=== PATIENT | female | born 1945 | race Caucasian/White ===

== ENCOUNTER 2021-06-17 06:53 | Observation (INO) ==
[2021-06-17] MEDS ORDERED: Naloxone 0.4 MG/ML INJ IVP PRN (11:24)
[2021-06-17] MEDS ORDERED: Ondansetron 4 MG/2 ML VIAL IVP PRN (11:24)
[2021-06-17] MEDS ORDERED: Acetaminophen 325 MG TABLET PO PRN (11:24)
[2021-06-17] MEDS ORDERED: D5% in Water 1,000 ML IVC PRN (12:36)
[2021-06-17] MEDS ORDERED: Dextrose Gel 15 GM/37.5 ML TUBE PO PRN ×2 (12:36)
[2021-06-17] MEDS ORDERED: *HR* Dextrose 50 % in Water (Syg) 50 ML SYRINGE IVP PRN (12:36)
[2021-06-17] MEDS: Insulin LISPRO 300 UNITS/3 ML VIAL SUBQ SCH ×3 (13:13→20:24)
[2021-06-17 13:31] LABS: Basophils % 0.1 %; Eosinophils % 0.3 %; Hematocrit 30.2 % (35.3-44.9); Hemoglobin 9.5 g/dL (11.5-15.4); Immature Granulocytes % 1.2 % (0-4); Lymphocytes # 1.1 K/mcL (0.6-4.6); Lymphocytes % 13.8 %; Mean Corpuscular HGB Conc 31.5 g/dL (31.6-35.5); Mean Corpuscular Hemoglobin 28.9 pg (28.0-33.3); Mean Corpuscular Volume 91.8 fL (83.0-100.0); Mean Platelet Volume 9.8 fL (9.4-12.4); Monocytes # 0.5 K/mcL (0.0-1.3); Monocytes % 6.4 %; Nucleated Red Blood Cells 0.4 /100 WBC (0); Platelet Count 134 K/mcL (140-400); Red Blood Count 3.29 M/mcL (3.82-4.97); Red Cell Distribution Width 15.7 % (11.5-14.5); Segmented Neutrophils % 78.2 %; White Blood Count 7.6 K/mcL (4.3-11.1)
[2021-06-17 13:43] LABS: INR 1.2
[2021-06-17 13:50] LABS: Calcium 8.1 mg/dL (8.6-10.3); Magnesium 1.7 mg/dL (1.6-2.6); Potassium 4.5 mEq/L (3.5-5.1)
[2021-06-17] MEDS ORDERED: SODIUM CHLORIDE/NAHCO3/KCL/PEG 4,000 ML SOLN.RECON PO ONE (17:00)
[2021-06-17] MEDS: 0.9 % Sodium Chloride 1,000 ML IVC SCH (17:01)
[2021-06-18 02:36] LABS: Basophils % 0.2 %; Eosinophils % 0.7 %; Hematocrit 26.9 % (35.3-44.9); Hemoglobin 8.5 g/dL (11.5-15.4); Immature Granulocytes % 0.8 % (0-4); Lymphocytes # 0.6 K/mcL (0.6-4.6); Lymphocytes % 9.7 %; Mean Corpuscular HGB Conc 31.6 g/dL (31.6-35.5); Mean Corpuscular Hemoglobin 28.7 pg (28.0-33.3); Mean Corpuscular Volume 90.9 fL (83.0-100.0); Mean Platelet Volume 10.3 fL (9.4-12.4); Monocytes # 0.5 K/mcL (0.0-1.3); Monocytes % 7.4 %; Nucleated Red Blood Cells 0.3 /100 WBC (0); Platelet Count 105 K/mcL (140-400); Red Blood Count 2.96 M/mcL (3.82-4.97); Segmented Neutrophils % 81.2 %; White Blood Count 6.1 K/mcL (4.3-11.1)
[2021-06-18 02:43] LABS: Calcium 7.8 mg/dL (8.6-10.3); Magnesium 1.6 mg/dL (1.6-2.6); Potassium 3.9 mEq/L (3.5-5.1)
[2021-06-18 02:45] LABS: Albumin 3.1 g/dL (3.5-5.7); Albumin/Globulin Ratio 1.2 (1.1-2.2); Bilirubin,Direct 0.1 mg/dL (0.0-0.2); Bilirubin,Indirect 0.5 mg/dL (0.0-1.0); Bilirubin,Total 0.6 mg/dL (0.3-1.0); Globulin 2.6 g/dL (2.4-3.5); Total Protein 5.7 g/dL (6.4-8.9)
[2021-06-18 02:48] LABS: INR 1.2; Prothrombin Time 12.9 Seconds (9.4-12.1)
[2021-06-18] MEDS: 0.9 % Sodium Chloride 1,000 ML IVC SCH ×2 (02:49→11:56)
[2021-06-18 03:10] LABS: Folate 7.7 ng/mL (3.0-16.0)
[2021-06-18] MEDS: Insulin LISPRO 300 UNITS/3 ML VIAL SUBQ SCH ×4 (07:24→21:01)
[2021-06-18] MEDS: carvediloL 6.25 MG TABLET PO SCH ×2 (11:55→21:01)
[2021-06-18] MEDS: Magnesium Oxide 400 MG TABLET PO SCH (11:56)
[2021-06-18] MEDS: Budesonide/Formoterol 160/4.5 1 PUFF INH IH SCH ×2 (15:25→20:30)
[2021-06-18 18:41] LABS: Hematocrit 27.7 % (35.3-44.9); Hemoglobin 8.8 g/dL (11.5-15.4)
[2021-06-18] MEDS ORDERED: Isovue-370 500 ML BOTTLE IVP ONE (18:45)
[2021-06-19 01:32] LABS: Basophils % 0.2 %; Eosinophils % 0.8 %; Hematocrit 25.3 % (35.3-44.9); Hemoglobin 8.2 g/dL (11.5-15.4); Immature Granulocytes % 0.6 % (0-4); Immature Platelets 3.1 % (1.1-6.1); Lymphocytes # 0.4 K/mcL (0.6-4.6); Lymphocytes % 8.9 %; Mean Corpuscular HGB Conc 32.4 g/dL (31.6-35.5); Mean Corpuscular Volume 92.7 fL (83.0-100.0); Mean Platelet Volume 10.4 fL (9.4-12.4); Monocytes # 0.4 K/mcL (0.0-1.3); Monocytes % 8.5 %; Neutrophils # 3.9 K/mcL (1.6-8.9); Nucleated Red Blood Cells 0.4 /100 WBC (0); Platelet Count 105 K/mcL (140-400); Red Blood Count 2.73 M/mcL (3.82-4.97); Red Cell Distribution Width 16.6 % (11.5-14.5); White Blood Count 4.8 K/mcL (4.3-11.1)
[2021-06-19 02:01] LABS: Calcium 7.7 mg/dL (8.6-10.3); Potassium 3.8 mEq/L (3.5-5.1)
[2021-06-19] MEDS: Insulin LISPRO 300 UNITS/3 ML VIAL SUBQ SCH ×4 (07:39→21:03)
[2021-06-19] MEDS: 0.9 % Sodium Chloride 1,000 ML IVC SCH ×2 (07:45)
[2021-06-19] MEDS: carvediloL 6.25 MG TABLET PO SCH ×2 (07:47→17:02)
[2021-06-19] MEDS: Magnesium Oxide 400 MG TABLET PO SCH (07:47)
[2021-06-19] MEDS: Ascorbic Acid 500 MG TABLET PO SCH (07:47)
[2021-06-19] MEDS ORDERED: Levothyroxine 25 MCG TABLET PO SCH (09:00)
[2021-06-19] MEDS: Budesonide/Formoterol 160/4.5 1 PUFF INH IH SCH ×2 (10:39→21:16)
[2021-06-19] MEDS: Aspirin Enteric Coated 81 MG Tablet PO SCH (13:50)
[2021-06-19] MEDS ORDERED: Insulin DETEMIR 100 UNIT/ML X5UNITS SUBQ SCH (21:00)
[2021-06-19] MEDS ORDERED: ALPRAZolam 0.25 MG TABLET PO SCH (21:00)
[2021-06-20 05:49] LABS: Basophils % 0.3 %
[2021-06-20 05:50] LABS: Eosinophils # 0.1 K/mcL (0.0-0.6); Eosinophils % 1.3 %; Hematocrit 24.7 % (35.3-44.9); Hemoglobin 7.9 g/dL (11.5-15.4); Immature Granulocytes % 1.3 % (0-4); Immature Platelets 3.3 % (1.1-6.1); Lymphocytes # 0.5 K/mcL (0.6-4.6); Lymphocytes % 11.5 %; Mean Corpuscular Hemoglobin 29.2 pg (28.0-33.3); Mean Corpuscular Volume 91.1 fL (83.0-100.0); Mean Platelet Volume 10.3 fL (9.4-12.4); Monocytes # 0.4 K/mcL (0.0-1.3); Monocytes % 9.9 %; Red Blood Count 2.71 M/mcL (3.82-4.97); Red Cell Distribution Width 16.9 % (11.5-14.5); Segmented Neutrophils % 75.7 %; White Blood Count 3.9 K/mcL (4.3-11.1)
[2021-06-20 05:53] LABS: Platelet Count 92 K/mcL (140-400)
[2021-06-20 06:05] LABS: Calcium 7.9 mg/dL (8.6-10.3); Potassium 3.7 mEq/L (3.5-5.1)
[2021-06-20] MEDS ORDERED: Levothyroxine 25 MCG TABLET PO SCH (06:30)
[2021-06-20 07:33] VITALS: BP 125/65; PULSE 74; TEMP 98.3
[2021-06-20] MEDS: Insulin LISPRO 300 UNITS/3 ML VIAL SUBQ SCH (07:38)
[2021-06-20] MEDS: Budesonide/Formoterol 160/4.5 1 PUFF INH IH SCH (07:45)
[2021-06-20 07:47] VITALS: O2SAT 95
[2021-06-20] MEDS: Ascorbic Acid 500 MG TABLET PO SCH (08:25)
[2021-06-20] MEDS: Magnesium Oxide 400 MG TABLET PO SCH (08:26)
[2021-06-20] MEDS: carvediloL 6.25 MG TABLET PO SCH (08:27)
[2021-06-20] MEDS: Aspirin Enteric Coated 81 MG Tablet PO SCH (08:27)
== END 2021-06-20 10:45 | disposition home health service (06) ==
LOC: 2ANU → SUATTDRO 09:45
PROVIDERS: ADMIT Pharmacist; ATTEND Internal Medicine